=== PATIENT | female | born 1980 | race Caucasian/White ===

== ENCOUNTER 2019-04-12 16:07 | Day surgery (SDC) | payer MEDICAID, SELFPAY ==
[2019-04-12] VITALS (10 sets, daily range): BP systolic 77–99; BP diastolic 44–67; PULSE 69–105; RESP 16–20; TEMP 36.1–36.7; O2SAT 97–100; BMI 23.8
--- NOTE | 2019-04-12 | POC_PTH ---
PATIENT: DARYL VINCENT LOC: [facility] [place] U#:[id number] AGE/SX: 39/F ROOM: RE04/12/[address]: Dr. Jimmy Calloway MD : 1980 BED: DIS: 04/12/2019 SPEC #: [id number] RECD: 04/14/19 12:03 STATUS: LUZMARIA ROBYN #: [id number] BAYLEE: 04/12/19 00:[address]: Jimmy Calloway DEPT: SURGICAL PATHOLOGY RECD BY: Oziel Coleman ENTERED: 04/14/19 12:04 SP TYPE: PROD CONC OTHR DR: Dr. Genet Krishnamurthy MD Tissues: Product of conception, NOS Procedures: Surgery Specimen Level IV HEADER OPERATION: Dilation and curettage, suction PRE-OP DIAGNOSIS: Incomplete TISSUE SUBMITTED: Products of conception MICROSCOPIC DIAGNOSIS Endometrium, curettage: Chorionic villi, decidualized stroma and trophoblastic cells consistent with products of conception. AM:cameron 04/15/19 MICROSCOPIC DESCRIPTION Slides are reviewed. GROSS DESCRIPTION Received in fixative is one container labeled with the patient's name and designated products of conception. The specimen consists of multiple fragments of hemorrhagic soft tissue that in aggregate measure 8 x 8 x 2.5 cm. No tissue is identified. Solar Thermal Technician tissue submitted in two cassettes. / SJ:cameron 04/14/19 TC:5 CPT: 30242
--- NOTE | 2019-04-12 16:28 | US_ITS ---
STUDY: ULTRASOUND OF THE FEMALE PELVIS - COMPLETE REASON FOR EXAM: Female, 39 years old. 2 weeks status post miscarriage. Continued bleeding. LMP: TECHNIQUE: Transvaginal TECHNICAL QUALITY: Adequate. COMPARISON: None. FINDINGS: The uterus is anteverted and is in a midline position. The uterus measures 11.8 x 6.8 x 5.9 cm. Normal uterine cervix. The endometrium is thickened measuring 2 cm. Endometrial echoes are heterogeneous and there is fluid in the endometrial cavity and endocervical canal. Soft tissue densities are seen in the endometrial cavity consistent with retained products of conception. The right ovary is visualized. The right ovary measures 2.8 x 3.5 x 1.3 cm. There is a 1.7 cm right ovarian cyst. There is no visualized right adnexal mass or complex lesion. There is normal arterial and normal venous vascularity. The left ovary is visualized. The left ovary measures 2.7 x 2.8 x 1.5 cm. There is no left ovarian cyst or ovarian mass. There is no visualized left adnexal mass or complex lesion. There is normal arterial and normal venous vascularity. There is no fluid in the cul-de-sac. US/Transvaginal Non- IMPRESSION: Enlarged uterus with thickened and abnormal endometrial echoes. Fluid and soft tissue structures in the endometrial cavity. Findings are consistent with retained products of conception. Electronically Signed: Kenny Perez MD at 18:11 EDT , Service support ,
--- NOTE | 2019-04-12 16:36 | ED.VIS.GEN ---
History of Present Illness Informant: Patient Onset: Yesterday Current Severity: Moderate Maximum Severity: Moderate Prior similar symptoms: No Recent Illness/Hospitalization: No <Mandie Patel - Last Filed: 04/12/19 18:12> <IsrraelManas - Last Filed: 04/12/19 19:22> Chief Complaint: Vag Bleeding Past Medical History Smoking Status: Current every day smoker <Mandie Patel - Last Filed: 04/12/19 18:12> <IsrraelManas - Last Filed: 04/12/19 19:22> - Allergies and Home Meds Allergies/Adverse Reactions: Allergies No Known Allergies Allergy (Verified 08/27/17 14:23) Primary Care Physician: Genet Krishnamurthy MD [Primary Care Provider] - Review of Systems All systems negative except as indicated General: Denies: Chills, Fever Eyes: Denies: Visual changes - left, Blurred vision - left Cardiovascular: Denies: Chest pain, Palpitations Respiratory: Denies: Dyspnea, Cough Gastrointestinal: Reports: Abdominal pain, Nausea. Denies: Vomiting Genitourinary: Reports: - - Heavy vaginal bleeding and menstrual type pelvic cramping. Denies: Dysuria, Hematuria, Frequency Musculoskeletal: Denies: Myalgias, Arthralgias, Back pain Neurological: Denies: Headache, Weakness, Parasthesia <Mandie Patel - Last Filed: 04/12/19 18:12> Physical Exam Vital Signs/Narrative: Vital Signs Temp Pulse Resp BP Pulse Ox 04/12/19 16:07 98.0 F 105 H 20 H 77/44 L 97 Inital Vital Signs reviewed: Yes General: Well nourished, Well developed Head: Normocephalic, Atraumatic Eyes: Perrl, EOMI. Negative for: Pale conjunctiva ENT: Moist mucous membranes, No rhinorrhea Neck: Supple, Nontender Cardiovascular: Regular rate, Regular rhythm, No murmurs Respiratory: No distress, CTA bilaterally, Chest nontender Abdomen: Soft, Nontender : - - Pelvic exam reveals large clots in vaginal vault. She was not hemorrhaging at this time. Minimal tenderness on bimanual exam Back: Nontender, Normal Inspection, CVA tenderness Extremities: Nontender, No edema. Negative for: Tenderness Skin: Normal color, No rash Neurological: Alert, Oriented x3 <Mandie Patel - Last Filed: 04/12/19 18:12> Vital Signs/Narrative: Vital Signs Temp Pulse Resp BP Pulse Ox 04/12/19 16:07 98.0 F 105 H 20 H 77/44 L 97 <IsrraelAmnas - Last Filed: 04/12/19 19:22> Diagnostic/Tx/Re-eval Hemoglobin is 10.4 and serum test was positive. Serum quantitative hCG is 1279. Type and screen was ordered. Pelvic ultrasound official report is pending. Dr Jerrell Calloway AIRLINE OPERATIONS AGENT [facility] was notified. She was hydrated with IV fluids and she did not appear to be in pain. White count is 30,000. In review of old records her white count was 20,000. She tends to run high. Is 6, P3, a 3. Concerned she has retained products of conception. Vital signs are monitored. Hypotensive in triage. BP improved to SBP 92. She remained alert and oriented and nontoxic in appearance. Dr Arcos will resume total care of patient. Currently pending pelvic ultrasound results and will recontact Dr. Calloway for plan. - Medical Decision Making She presented hypotensive with vaginal bleeding. Work-up revealed hemoglobin of 10.4 and a quantitative hCG of 1279. Type and screen is pending and pelvic ultrasound is pending. The concern is that she has retained products of conception. AIRLINE OPERATIONS AGENT was contacted by Dr. Arcos. Dr. Arcos will resume total care of this patient. Impression Acute heavy vaginal bleeding Acute hypotension Status post miscarriage concern for retained products of conception <AmandaMandie - Last Filed: 04/12/19 18:12> - Medical Decision Making Patient being evaluated with our LEAN SIX SIGMA SENIOR SPECIALIST. 39-year-old female G6, P3, AB 3 with those being 2 miscarriages and 1 ectopic. Patient states she had a miscarriage around March 17. [facility]. States she started having a menstrual period the other day and is having much heavier bleeding today. With clots. She does not know her blood type but is never received RhoGam in the past. She denies any pain. Female with low blood pressure of 77/44. Heart rate 105. She does not look septic or toxic. She is not dehydrated. HEENT exam unremarkable. Lungs clear to auscultation. Heart rate of 105 no murmur. Abdomen is soft and nontender. Normal bowel sounds no peritoneal signs. Pelvic exam done by our LEAN SIX SIGMA SENIOR SPECIALIST. Patient was passing blood and clots. No discharge. Nontender. Moving all 4 extremities. No edema. Neurologically awake and alert. Labs to be obtained and ultrasound. If the patient remains hypotensive she may need a D&C. Currently she is being treated with IV fluids. Quant was 1279. Most likely secondary to her recent miscarriage. Her CBC showed a white count of 10.4. Pelvic ultrasound showed a thickened endometrium with what the radiologist thought was retained products of conception. I discussed this with the AIRLINE OPERATIONS AGENT physician change control specialist Dr. Leisa Calloway and she will be and evaluate the patient and most likely take the patient for a D&C. Impression: 1. Acute heavy vaginal bleeding Canary to retained products of conception 2. Acute hypotension 3. Status post recent miscarriage about 4 weeks ago. <Manas Arcos - Last Filed: 04/12/19 19:22> ED Disposition <Mandie Patel - Last Filed: 04/12/19 18:12> <Manas Arcos - Last Filed: 04/12/19 19:22> - Plan for ED Patient: Referrals: Genet Krishnamurthy MD [Primary Care Provider] -
[2019-04-12 16:48] LABS: Internal QC Validated? YES +Cl - CLEAR BKGD
[2019-04-12 16:49] LABS: Absolute Lymphocyte Count 2.32 X10^3/uL (0.83-4.51); Absolute Neutrophil Count 8.6 X10^3/uL (2.0-7.7); Basophil# 0.05 X10^3/uL; Basophil% 0.4 % (0-1); Eosinophil# 0.05 X10^3/uL; Eosinophils% 0.4 % (0-5); Hematocrit 30.1 % (37-47); Hemoglobin 10.4 g/dL (12.0-15.0); Lymphocyte # 2.32 X10^3/ul (4.0); Lymphocyte % 19.9 % (19-41); Mean Corp Hgb Conc 34.6 g/dL (32-36); Mean Corpuscular Hgb 30.7 pg (27.0-32.0); Mean Corpuscular Volume 88.8 fL (81-99); Mean Platelet Vol. 10.2 fl (6.2-12.0); Monocyte# 0.56 X10^3/uL; Monocyte% 4.8 % (0-10); NRBC Flagged by Analyzer 0 % (0-5); Neutrophil # 8.63 X10^3/uL (2.7-7.7); Platelet Count 265 K/mm3 (150-450); RBC Distribution Width CV 13.7 % (11.6-14.6); RBC Distribution Width SD 44.4 fl (35.1-43.9); Red Blood Count 3.39 M/mm3 (4.2-5.4); White Blood Count 11.7 K/mm3 (4.4-11.0)
[2019-04-12 16:58] LABS: Anion Gap 6 (5-15); BUN 16 mg/dL (7-18); BUN/Creat Ratio 17.9 RATIO (10-20); Calcium,Total 8.3 mg/dL (8.5-10.1); Chloride 106 mmol/L (98-107); EST Glomerular Filtration Rate 75 mL/min (>60); Est Glom Filt Rate - Afr Amer 91 mL/min (>60); Estimated Creatinine Clearance 67.03 ml/min; Glucose 180 mg/dL (74-106); Potassium 3.5 mmol/L (3.5-5.1); Sodium Level 138 mmol/L (136-145)
[2019-04-12 17:01] LABS: Pregnancy, Serum, hCG Quali. POSITIVE Negative
--- NOTE | 2019-04-12 17:03 | NURSING ---
LAB CALLED WITH CRITICAL LAB VALUE. DR BOSE NOTIFIED AT THIS TIME.
[2019-04-12] MEDS: 0.9% Normal Saline 1,000 ML 1000 ML IV (17:14)
--- NOTE | 2019-04-12 17:26 | NURSING ---
PAGED DR EL MAHMOOD
[2019-04-12 18:02] LABS: hCG Titer Quant., Serum 1279 mIU/mL (1-3)
--- NOTE | 2019-04-12 20:11 | HP.PCM_ITS ---
History Date of Admission: 04/12/19 History of this : This is a 39 year-old, G [], P [], at weeks gestational age. Medical History: Medical History (Last Updated 04/12/19 @ 20:12 by Jimmy Calloway) ADHD F90.9 Anxiety F41.9 [place] teeth extracted K08.499 1995 Surgical History: Surgical History (Last Updated 04/12/19 @ 20:12 by Jimmy Calloway) History of dilation and curettage Z98.890 Allergies No Known Allergies Allergy (Verified 08/27/17 14:23) Home Medications: Home Medications Dextroamphetamine/Amphetamine [Adderall 10 mg Tablet] 10 mg PO DAILY 04/12/19 Dextroamphetamine/Amphetamine [Adderall Xr 20 mg Capsule] 20 mg PO DAILY 04/12/19 Lorazepam [Ativan] 1 mg PO BID PRN PRN 04/12/19 Smoking Status: Current every day smoker Substance Use Type: Methamphetamine - last use 1 week ago; DENIES all other substance use History Past Pregnancies: Past Pregnancies Delivery Date Name GA/Weeks Outcome Route Weight Infant Gender Labor Length Anesthesia Delivery Location Provider FOB Review of Systems Constitutional: Denies: Chills, Fever, Weight Change Cardiovascular: Denies: Chest Pain, Palpitations Respiratory: Denies: Cough, Shortness of breath at rest, Sputum production Physical Exam Vitals: Vital Signs Temp Pulse Resp BP Pulse Ox 98.0 F 81 18 99/67 99 04/12/19 16:07 04/12/19 19:00 04/12/19 19:00 04/12/19 19:00 04/12/19 19:00 General: Alert, Oriented x3 HEENT: Atraumatic Cardiovascular: Regular rate, Regular Rhythm - per ED exam Lungs: Clear to auscultation, Normal air movement - per ED exam Abdomen: Soft, Non Tender, Non-Distended Extremities:: No edema, No tenderness/swelling Neurological: Cranial nerves II-XII grossly intact CHARGE ACCOUNTS AUDIT CLERK: Normal external genitalia - blood present Assessment/Plan 39yo female with incomplete Reviewed US results showing retained POC's. Discussed R/B/A and will proceed with suction D&C. All questions answered and informed consent signed. Plan for a course of doxycycline as patient with an incomplete AB for greater than 3 weeks.
--- NOTE | 2019-04-12 20:44 | DCINST_ITS ---
Discharge Diet: No Restrictions Discharge Activity: Return to Normal Activity - After 24 hours May resume sexual activity in: 4-6 weeks Weight Bearing Status: Weight bearing as tolerated Call your doctor if you observe: Fever of 101 or Higher, Coldness, Increased Pain, Numbness or Tingling, Change in Color, Inability to urinate, Inability to have a bowel movement, Using more than one pad per hour, Shortness of breath, Dizziness, Fainting spells, Chest pain, Increased palpitations (irregular heartbeat) Allergies/Adverse Reactions: Allergies No Known Allergies Allergy (Verified 08/27/17 14:23) Medications to take at Discharge Dextroamphetamine/Amphetamine [Adderall 10 mg Tablet] 10 mg PO DAILY 04/12/19 Dextroamphetamine/Amphetamine [Adderall Xr 20 mg Capsule] 20 mg PO DAILY 04/12/19 Doxycycline 100 mg PO BID #14 cap 04/12/19 Ibuprofen 600 mg PO Q6H PRN PRN #40 tab 04/12/19 Lorazepam [Ativan] 1 mg PO BID PRN PRN 04/12/19 The following prescriptions were given: Doxycycline 100 mg PO BID #14 cap Prescription Printed Ibuprofen 600 mg PO Q6H PRN PRN #40 tab PRN Reason: abdominal pain Prescription Printed Primary Care Physician: Genet Krishnamurthy MD [Primary Care Provider] - Test Results: Test results from this visit will be discussed in further detail at your follow- up appointment, if applicable.
--- NOTE | 2019-04-12 20:46 | PCM.OPRPT ---
Report of Operation Date of Procedure: 04/12/19 Pre-Operative Diagnosis: Incomplete Post-Operative Diagnosis: Same Surgery/Procedure Performed:: Suction dilation and curettage Description of Surgical Findings:: 10 week size uterus with POC's Type of Anesthesia:: MAC Specimen's removed: POC's Estimated Blood Loss (mL): 100ml Fluids Replaced: 500ml Description of Procedure: Patient taken to OR where MAC anesthesia was placed. Patient was prepped & draped in dorsal lithotomy position. Cervix grasped with a tenaculum. Some POC's as cervical os were grasped with ring forceps. #8 suction curette introduced with return for additional POC's. Gentle sharp curettage with #3 was performed. Suction curettage performed again. Sharp curettage returned and confirmed gritty texture. At end of procedure all instruments removed from vaginal cavity. Patient tolerated procedure well. - Complications None - Admit VTE Documentation VTE Present on Admission: No
[2019-04-12] MEDS: Doxycycline 100 MG CAPSULE 200 MG PO (20:57)
== END 2019-04-12 21:30 | disposition home or self-care (01) ==
LOC: ED 17:23 → SDC 19:57
PROVIDERS: Nurse Practitioner; Emergency Provider Emergency Medicine; Family Provider Family Medicine; PCP Family Medicine; Visit Provider Obstetrics & Gynecology
PROC: (CPT 59812; principal; 2019-04-12 20:00)
DX: O03.4 Incomplete spontaneous abortion without complication (principal); F90.9 Attention-deficit hyperactivity disorder, unspecified type; F41.9 Anxiety disorder, unspecified; F17.200 Nicotine dependence, unspecified, uncomplicated
CPT/HCPCS: 59812; 76830; 80048; 84702; 84703; 85025; 86850; 86900; 88305; 99283; J7030; A4216; J2405

== ENCOUNTER → 2020-06-11 | Outpatient (CLI) | payer MEDICAID, SELFPAY ==
[2019-04-12 19:45] VITALS: BMI 23.8
--- NOTE | 2020-06-11 15:49 | RAD_ITS ---
STUDY: X-RAY - PELVIS AND BILATERAL HIPS REASON FOR EXAM: Female, 40 years old. BILATERAL HIP PAIN xFEW MONTHS, WORSENING LAST TWO WEEKS- BECOMING CONSTANT -- WORSE WHEN RESTING TECHNIQUE: AP view of the pelvis.? 2 views of the right hip, and 2 views of the left hip were obtained. COMPARISON: None. FINDINGS: There is a non-specific bowel gas pattern. Normal visualized soft tissue structures. Normal bilateral iliac wings, sacroiliac joints and visualized sacrum. Normal bilateral superior and inferior pubic rami. Normal pubic symphysis. Normal bilateral ischial tuberosities. Normal visualized right femoral head. Normal right acetabulum. Normal right hip joint. Normal visualized left femoral head. Normal left acetabulum. Normal left hip joint. RAD/Hips B/L min 2 views w/ Pelvis IMPRESSION: Normal x-ray examination of the pelvis and bilateral hips. Electronically Signed: Jun Negro MD (Brooks) at 12:28 EDT , Service support ,
== END | disposition home or self-care (01) ==
LOC: MTRAD 15:46
PROVIDERS: PCP Family Medicine; Referring Provider Family Medicine; Visit Provider Family Medicine
DX: M25.552 Pain in left hip (principal)
CPT/HCPCS: 73521

== ENCOUNTER 2021-06-07 16:00 | Outpatient (RCR) | payer MEDICAID, SELFPAY | END 2021-06-09 23:59 | LOC: DC 16:00 | PROVIDERS: PCP Family Medicine; Visit Provider Advanced Practice Midwife | DX: O24.410 Gestational diabetes mellitus in pregnancy, diet controlled (principal); Z3A.00 Weeks of gestation of pregnancy not specified | CPT/HCPCS: 97802 ==

== ENCOUNTER 2021-06-15 15:42 | Outpatient (RCR) | payer MEDICAID, SELFPAY | END 2021-07-10 23:59 | LOC: DC 15:42 | PROVIDERS: PCP Family Medicine; Visit Provider Advanced Practice Midwife | DX: O24.410 Gestational diabetes mellitus in pregnancy, diet controlled (principal); Z3A.00 Weeks of gestation of pregnancy not specified ==

== ENCOUNTER 2021-08-17 19:55 | Inpatient (IN) | payer MEDICAID, SELFPAY ==
[2021-08-17 20:05] VITALS: BMI 41.7
[2021-08-17 20:07] VITALS: PULSE 99; O2SAT 98
[2021-08-17 20:13] VITALS: BP 120/69; PULSE 96; TEMP 36.7
[2021-08-17] MEDS: Lactated Ringers 1,000 ML 50 ML IV (20:25)
[2021-08-17 20:50] LABS: Basophil# 0.03 X10^3/uL; Basophil% 0.3 % (0-1); Eosinophil# 0.08 X10^3/uL; Eosinophils% 0.7 % (0-5); Hematocrit 34.6 % (37-47); Hemoglobin 11.1 g/dL (12.0-15.0); Lymphocyte % 19.3 % (19-41); Mean Corp Hgb Conc 32.1 g/dL (32-36); Mean Corpuscular Hgb 28.3 pg (27.0-32.0); Mean Corpuscular Volume 88.3 fL (81-99); Mean Platelet Vol. 11.1 fl (6.2-12.0); Monocyte# 0.63 X10^3/uL; Monocyte% 5.8 % (0-10); NRBC Flagged by Analyzer 0 % (0-5); Neutrophil # 7.97 X10^3/uL (2.7-7.7); Neutrophil % 73.2 % (47-70); Platelet Count 257 K/mm3 (150-450); RBC Distribution Width CV 15.9 % (11.6-14.6); RBC Distribution Width SD 51.1 fl (35.1-43.9); Red Blood Count 3.92 M/mm3 (4.2-5.4); White Blood Count 10.9 K/mm3 (4.4-11.0)
[2021-08-17 22:00] LABS: ALB/GLOB Ratio 0.6 RATIO (0.9-2.4); AST(SGOT) 12 U/L (15-37); Alanine Aminotransfer ALT/SGPT 17 U/L (13-56); Albumin, Serum 2.3 g/dL (3.2-5.0); Alkaline Phosphatase 190 U/L (45-117); Anion Gap 8 (5-15); BUN 8 mg/dL (7-18); BUN/Creat Ratio 11.8 RATIO (10-20); Calcium,Total 8.4 mg/dL (8.5-10.1); Chloride 111 mmol/L (98-107); Creatinine, Serum 0.68 mg/dL (0.55-1.02); EST Glomerular Filtration Rate 102 mL/min (>60); Est Glom Filt Rate - Afr Amer 123 mL/min (>60); Estimated Creatinine Clearance 82.99 ml/min; Glucose 95 mg/dL (74-106); Potassium 3.8 mmol/L (3.5-5.1); Protein, Total 6.3 g/dL (6.4-8.2); Sodium Level 142 mmol/L (136-145)
[2021-08-17 22:02] LABS: AST(SGOT) 14 U/L (15-37); Alanine Aminotransfer ALT/SGPT 18 U/L (13-56); Creatinine, Serum 0.66 mg/dL (0.55-1.02); EST Glomerular Filtration Rate 105 mL/min (>60); Est Glom Filt Rate - Afr Amer 127 mL/min (>60); Uric Acid 4.9 mg/dL (2.6-6.0)
[2021-08-17 22:05] LABS: Protein, Urine (Random) 35.6 mg/dL (<11.9); Protein:Creat Ratio 163 mg/g CRE (0-200)
[2021-08-17 22:13] LABS: Amphetamine Urine VISTA NEGATIVE (<1000 ng/mL); Barbiturate Urine VISTA NEGATIVE (< 200 ng/mL); Benzodiazepine Urine VISTA NEGATIVE (< 200 ng/mL); Cocaine Urine VISTA NEGATIVE (< 300 ng/mL); Ecstacy Urine VISTA NEGATIVE (< 500 ng/mL); Methadone Urine VISTA NEGATIVE (< 300 ng/mL); PCP Urine VISTA NEGATIVE (< 25 ng/mL); THC Urine VISTA NEGATIVE (< 50 ng/mL); Vista UDS pH Range 5
[2021-08-17 22:46] LABS: Bedside Glucose 101 mg/dL (70-110)
[2021-08-17 23:00] VITALS: BP 122/58; PULSE 84; PULSE 87; TEMP 36.7; O2SAT 99
[2021-08-17] MEDS: Mag Hydrox/Al Hydrox/Simeth 30 ML UDC PO (23:12)
[2021-08-17 23:15] VITALS: TEMP 36.5
[2021-08-18] VITALS (50 sets, daily range): BP systolic 83–169; BP diastolic 40–129; PULSE 74–107; TEMP 36.1–38.4; O2SAT 86–100
[2021-08-18 04:16] LABS: Bedside Glucose 78 mg/dL (70-110)
[2021-08-18] MEDS: 0.9% Saline Lock 10 ML Syringe IV (07:52)
--- NOTE | 2021-08-18 08:11 | PCM.HP.OB ---
HPI - General General Date of Admission: 08/17/21 HPI Narrative DARYL VINCENT, is a 41 F at 37.5 weeks gestation that was sent over from office for induction of labor due to elevated BP in office. complicated by GDM A1, AMA, Obesity and depression. Maternal Data Information BARBY Calculator Estimated Delivery Date Method Current WG Current Estimate 09/03/21 Manual 37w 5d PFSH PFSH Medical History ADHD Anxiety Depression Gestational diabetes Gestational HTN depression Home Medications aspirin 81 mg PO DAILY 08/17/21 [History Last Taken 08/16/21] blood-glucose meter [Glucometer-M] 08/17/21 [History Last Taken Unknown] prenat vit-iron [id number] [Prena-Cap] 1 cap PO DAILY 08/17/21 [History Last Taken 08/16/21] Allergy/AdvReac Type Severity Reaction Status Date / Time No Known Allergies Allergy Verified 08/17/21 22:37 Surgical History History of dilation and curettage [place] teeth extracted Social History Smoking Status: Current every day smoker History Elective abortions Hx Para 3 Spontaneous abortions Hx # Term Pregnancies Ectopic pregnancies Hx # Pregnancies Multiple births # of living children NST FHR Rate Baby A Baseline: 135 Variability:: Moderate Accelerations:: 15 x 15 Decelerations:: None NST Reactive:: Yes FHR Category:: Category I Uterine Activity:: irritability ROS Eyes Eyes: Denies blurry vision, change in vision or spots in vision ENT HEENT: Denies dizziness or headache(s) Cardiovascular Cardiovascular: Denies abdominal pain, chest pain or dyspnea Respiratory/Chest Respiratory/Chest: Denies cough, dyspnea, shortness of breath at rest or shortness of breath with exertion Gastrointestinal Gastrointestinal: Denies abdominal pain, diarrhea or vomiting Genitourinary Genitourinary: Denies change in urinary stream, difficulty urinating or dysuria Musculoskeletal Musculoskeletal: Reports none Integumentary Integumentary: Denies rash Neurologic Neurologic: Denies dizziness, headache(s), memory loss or weakness Psychiatric Psychiatric: Reports none Vital Signs Vital Signs Vital Signs: 08/17/21 20:07 08/17/21 20:13 08/17/21 23:00 Temperature 98.1 F 98.1 F Temperature Source Temporal Temporal Pulse Rate 99 96 84 Blood Pressure 120/69 122/58 H BP Systolic 120 122 BP Diastolic 69 58 Pulse Ox 98 99 08/17/21 23:15 08/18/21 04:06 08/18/21 07:53 Temperature 97.7 F L 97.8 F Temperature Source Temporal Temporal Pulse Rate 75 84 Blood Pressure 118/61 112/59 L BP Systolic 118 112 BP Diastolic 61 59 Pulse Ox 08/18/21 08:38 08/18/21 08:39 08/18/21 08:55 Temperature 98.2 F Temperature Source Temporal Pulse Rate 83 85 83 Blood Pressure 122/70 H BP Systolic 122 BP Diastolic 70 Pulse Ox 96 97 08/18/21 09:37 08/18/21 10:18 08/18/21 10:19 Temperature 98.0 F Temperature Source Temporal Pulse Rate 80 88 81 Blood Pressure 120/60 121/70 H BP Systolic 120 121 BP Diastolic 60 70 Pulse Ox 97 08/18/21 11:29 08/18/21 12:35 08/18/21 12:36 Temperature 97.6 F L 97.7 F L Temperature Source Temporal Temporal Pulse Rate 76 78 Blood Pressure 102/59 L 115/62 BP Systolic 102 115 BP Diastolic 59 62 Pulse Ox Weight Weight: 224 lb 10.417 oz Body Mass Index (BMI) 41.7 Physical Exam Const alert, oriented x3 and no apparent distress General Appearance: cooperative Orientation / Consciousness: awake Exam Limitations: no limitations HEENT normocephalic Head and Scalp: normal to inspection Eyes General Eye: normal appearance of both eyes Neck full ROM and no lymphadenopathy Lymph Lymphatic: no lymphadenopathy noted Chest inspection of chest normal Resp normal respiratory effort, normal air movement and clear to auscultation bilaterally Effort and Inspection: able to speak in complete sentences and symmetric chest movement Cardio regular rate and regular rhythm GI normal to inspection, nondistended, normoactive bowel sounds Manual OB Exam: presentation cephalic, dilated 4, effaced 60 and station -3 Amniotic Fluid: clear amniotic fluid Back/Spine normal ROM Extremity full ROM and no calf tenderness Skin no rashes or lesions noted General Skin Exam: no breakdown Neuro oriented x3 and CN's II-XII intact bilaterally Psych mental status grossly normal and thought process normal Labs Labs Labs: Blood Type A POSITIVE Antibody Screen NEGATIVE Hct 34.6 % (37-47) L Hgb 11.1 g/dL (12.0-15.0) L Rubella immune HB neg HC neg RPR NR HIV NR GBS neg Assessment & Plan (1) Encounter for induction of labor: (2) Obesity affecting : QUALIFIERS: Trimester: unspecified trimester Qualified Code(s): O99.210 - Obesity complicating , unspecified trimester (3) Depression affecting , antepartum: (4) AMA (advanced maternal age) multigravida 35+: QUALIFIERS: Trimester: unspecified trimester Qualified Code(s): O09.529 - Supervision of elderly multigravida, unspecified trimester (5) 37 weeks gestation of : (6) Gestational diabetes: QUALIFIERS: Gestational diabetes mellitus control: diet-controlled Trimester: unspecified trimester Qualified Code(s): O24.410 - Gestational diabetes mellitus in , diet controlled COMMENT: 2020 (7) Gestational HTN: QUALIFIERS: Trimester: third trimester Qualified Code(s): O13.3 - Gestational [-induced] hypertension without significant proteinuria, third trimester COMMENT: 2020 PLAN: Admitted to labor and delivery Routine labs PIH labs within normal range Willett bulb placement- pitocin IV Diabetes protocol HTN protocol Anticipate Dr. Liriano involved in plan of care and is collaborating physician
--- NOTE | 2021-08-18 08:38 | PCM.PN.OB ---
Subjective Subjective Patient seen at bedside. at 37.5 weeks gestation that was sent over to unit yesterday for induction of labor for increased blood pressure in office, GDM, AMA. IOL postponed last night due to staffing on unit. Patient denies any headache, vision changes, dizziness, SOB or CP. Positive movement. Denies any contractions or loss of fluid. Objective Data Objective Data Vital Signs: Vital Signs Temp Pulse BP Pulse Ox 97.8 F 84 112/59 L 99 08/18/21 04:06 08/18/21 07:53 08/18/21 07:53 08/17/21 23:00 Weight: 224 lb 10.417 oz Body Mass Index (BMI) 41.7 Intake & Output: Intake and Output for Last 24 Hours 08/16/21 08/17/21 08/18/21 23:59 23:59 23:59 Intake Total 66.67 / 66.67 0 / 0 Balance 66.67 / 66.67 0 / 0 Lab / Micro Data Result Diagrams: 08/17/21 20:25 08/17/21 21:25 Labs: Laboratory Results - last 24 hr 08/17/21 20:25: WBC 10.9, RBC 3.92 L, Hgb 11.1 L, Hct 34.6 L, MCV 88.3, MCH 28.3, MCHC 32.1, RDW Std Deviation 51.1 H, RDW Coeff of Bonifacio 15.9 H, Plt Count 257, MPV 11.1, Immature Gran % (Auto) 0.700, Neut % (Auto) 73.2 H, Lymph % (Auto) 19.3, [place] % (Auto) 5.8, Eos % (Auto) 0.7, Baso % (Auto) 0.3, Absolute Neuts (auto) 8.0 H, Absolute Lymphs (auto) 2.10, Nucleated RBC % 0 08/17/21 20:25: Blood Type A POSITIVE, Antibody Screen NEGATIVE 08/17/21 21:25: U Random Total Protein 35.6 H, Urine Creatinine 218.00, Protein/Creatinin Ratio 163 08/17/21 21:25: Creatinine 0.66, Estim Creat Clear Calc 85.50, Est GFR (MDRD) Af Amer 127, Est GFR (MDRD) Non-Af 105, Uric Acid 4.9, AST 14 L, ALT 18 08/17/21 21:25: Sodium 142, Potassium 3.8, Chloride 111 H, Carbon Dioxide 23.0, Anion Gap 8, BUN 8, Creatinine 0.68, Estim Creat Clear Calc 82.99, Est GFR (MDRD) Af Amer 123, Est GFR (MDRD) Non-Af 102, BUN/Creatinine Ratio 11.8, Glucose 95, Calcium 8.4 L, Total Bilirubin 0.20, AST 12 L, ALT 17, Alkaline Phosphatase 190 H, Total Protein 6.3 L, Albumin 2.3 L, Globulin 4.0, Albumin/Globulin Ratio 0.6 L 08/17/21 21:45: Urine Opiates Screen NEGATIVE, Urine Methadone Screen NEGATIVE, Ur Barbiturates Screen NEGATIVE, Ur Phencyclidine Scrn NEGATIVE, Ur Amphetamines Screen NEGATIVE, U Methamphetamin-MDMA NEGATIVE, U Benzodiazepines Scrn NEGATIVE, Urine Cocaine Screen NEGATIVE, U Cannabinoids Screen NEGATIVE, Ur Drug Screen Comment 08/17/21 22:40: POC Glucose 101 08/18/21 04:11: POC Glucose 78 Micro: Microbiology 08/17/21 20:15 Nasal Secretion SARS-CoV-2 Antigen (Rapid) - Final ROS Eyes Eyes: Denies blurry vision, change in vision or spots in vision ENT HEENT: Denies dizziness or headache(s) Cardiovascular Cardiovascular: Denies abdominal pain, chest pain or dyspnea Respiratory/Chest Respiratory/Chest: Denies cough, dyspnea, shortness of breath at rest or shortness of breath with exertion Gastrointestinal Gastrointestinal: Denies abdominal pain, diarrhea or vomiting Genitourinary Genitourinary: Denies change in urinary stream, difficulty urinating or dysuria Musculoskeletal Musculoskeletal: Reports none Integumentary Integumentary: Denies rash Neurologic Neurologic: Denies dizziness, headache(s), memory loss or weakness Psychiatric Psychiatric: Reports none Physical Exam Const alert and no apparent distress General Appearance: cooperative and comfortable Exam Limitations: no limitations HEENT normocephalic Eyes General Eye: normal appearance of both eyes Neck full ROM General: normal visual inspection Chest Chest: symmetrical chest wall rise Resp normal respiratory effort and normal air movement Effort and Inspection: symmetric chest movement Auscultation: clear to auscultation bilaterally Cardio regular rate and regular rhythm GI normal to inspection, nondistended, normoactive bowel sounds Back/Spine normal ROM Extremity full ROM and no calf tenderness General Extremity: normal exam except as noted Skin no rashes or lesions noted Neuro CN's II-XII intact bilaterally Psych mental status grossly normal NST FHR Rate Baby A Baseline: 145 Variability:: Moderate Accelerations:: 15 x 15 Decelerations:: None NST Reactive:: Yes FHR Category:: Category I Uterine Activity:: None Assessment & Plan (1) 37 weeks gestation of : (2) Gestational diabetes: QUALIFIERS: Gestational diabetes mellitus control: diet-controlled Trimester: unspecified trimester Qualified Code(s): O24.410 - Gestational diabetes mellitus in , diet controlled COMMENT: 2020 (3) Gestational HTN: QUALIFIERS: Trimester: third trimester Qualified Code(s): O13.3 - Gestational [-induced] hypertension without significant proteinuria, third trimester COMMENT: 2020 (4) AMA (advanced maternal age) multigravida 35+: QUALIFIERS: Trimester: unspecified trimester Qualified Code(s): O09.529 - Supervision of elderly multigravida, unspecified trimester (5) Depression affecting , antepartum: (6) Obesity affecting : PLAN: CE- /50/-3 Foleybulb placed without difficulty and 30 cc NS placed Start Pitocin at 2mu/min and titrate per policy Diabetes protocol HTN protocol BP and PIH labs within normal ranges (118/61, 122/58) Epidural when indicated Anticipate Dr. Liriano notified and is collaborating physician
[2021-08-18] MEDS: 0.9% Normal Saline Single 100 ML IV.SOLN. INTRA-UTER (08:40)
[2021-08-18] MEDS: Oxytocin 30 units/NS 500 ml 30 UNITS/500 ML IV.SOLN IV (08:41)
[2021-08-18 09:46] LABS: Bedside Glucose 163 mg/dL (70-110)
[2021-08-18 11:45] LABS: Bedside Glucose 75 mg/dL (70-110)
--- NOTE | 2021-08-18 13:07 | PCM.PN.BLA ---
Progress Note Patient seen at bedside. Rates pain 2/10 with contractions. Unsure if wants epidural. Physical Exam Const alert and no apparent distress General Appearance: cooperative and comfortable Exam Limitations: no limitations HEENT normocephalic Eyes General Eye: normal appearance of both eyes Neck full ROM General: normal visual inspection Chest Chest: symmetrical chest wall rise Resp normal respiratory effort and normal air movement Effort and Inspection: symmetric chest movement Auscultation: clear to auscultation bilaterally Cardio regular rate and regular rhythm GI normal to inspection, nondistended, normoactive bowel sounds Back/Spine normal ROM Extremity full ROM and no calf tenderness General Extremity: normal exam except as noted Skin no rashes or lesions noted Neuro CN's II-XII intact bilaterally Psych mental status grossly normal Assessment & Plan Assessment/Plan (1) Gestational HTN: QUALIFIERS: Trimester: third trimester Qualified Code(s): O13.3 - Gestational [-induced] hypertension without significant proteinuria, third trimester (2) Gestational diabetes: QUALIFIERS: Gestational diabetes mellitus control: diet-controlled Trimester: unspecified trimester Qualified Code(s): O24.410 - Gestational diabetes mellitus in , diet controlled (3) 37 weeks gestation of : (4) AMA (advanced maternal age) multigravida 35+: QUALIFIERS: Trimester: unspecified trimester Qualified Code(s): O09.529 - Supervision of elderly multigravida, unspecified trimester (5) Depression affecting , antepartum: (6) Obesity affecting : PLAN: Willett bulb came out Pitocin IV 10 mu/min- continue to titrate CE- 4/60/-3 TAUS confirms cephalic position Cat. 1 tracing Difficult to trace due to maternal size- plan to place internals once ruptured Continue present plan of care Anticipate
--- NOTE | 2021-08-18 15:32 | PCM.PN.BLA ---
Progress Note pt seen at bedside, VE: 3.5/70/-2 AROM performed, large amount of clear fluid. IUPC and IFM placed. Continue pitocin.
[2021-08-18 16:01] LABS: Bedside Glucose 93 mg/dL (70-110)
[2021-08-18] MEDS: Lactated Ringers 500 ML 999 ML IV ×3 (16:45→19:49)
[2021-08-18] MEDS: fentaNYL-bupivacaine (epidural) 100 ML BAG EPIDURAL ×2 (17:31→21:41)
[2021-08-18] MEDS: Lactated Ringers 1,000 ML 200 ML IV (18:18)
[2021-08-18 19:45] LABS: Bedside Glucose 51 mg/dL (70-110)
[2021-08-18 20:36] LABS: Bedside Glucose 55 mg/dL (70-110)
[2021-08-18 20:36] LABS: Bedside Glucose 67 mg/dL (70-110)
[2021-08-18 20:40] LABS: Bedside Glucose 91 mg/dL (70-110)
[2021-08-18] MEDS: Amnioinfusion- 0.9% NS 1,000 ML IV.SOLN. INTRA-UTER (22:38)
[2021-08-18] MEDS: Acetaminophen 500 MG Tablet PO (22:41)
[2021-08-18 22:55] LABS: Bedside Glucose 121 mg/dL (70-110)
--- NOTE | 2021-08-18 23:55 | PCM.PN.BLA ---
Progress Note Patient seen at bedside. Comfortable with epidural. Frequent position changes. Physical Exam Const alert and no apparent distress General Appearance: cooperative and comfortable Exam Limitations: no limitations HEENT normocephalic Eyes General Eye: normal appearance of both eyes Neck full ROM General: normal visual inspection Chest Chest: symmetrical chest wall rise Resp normal respiratory effort and normal air movement Effort and Inspection: symmetric chest movement Auscultation: clear to auscultation bilaterally Cardio regular rate and regular rhythm GI normal to inspection, nondistended, normoactive bowel sounds Back/Spine normal ROM Extremity full ROM and no calf tenderness General Extremity: normal exam except as noted Skin no rashes or lesions noted Neuro CN's II-XII intact bilaterally Psych mental status grossly normal Assessment & Plan Assessment/Plan (1) Encounter for induction of labor: (2) Obesity affecting : QUALIFIERS: Trimester: unspecified trimester Qualified Code(s): O99.210 - Obesity complicating , unspecified trimester (3) Depression affecting , antepartum: (4) AMA (advanced maternal age) multigravida 35+: QUALIFIERS: Trimester: unspecified trimester Qualified Code(s): O09.529 - Supervision of elderly multigravida, unspecified trimester (5) Gestational diabetes: QUALIFIERS: Gestational diabetes mellitus control: diet-controlled Trimester: unspecified trimester Qualified Code(s): O24.410 - Gestational diabetes mellitus in , diet controlled (6) Gestational HTN: QUALIFIERS: Trimester: third trimester Qualified Code(s): O13.3 - Gestational [-induced] hypertension without significant proteinuria, third trimester (7) 37 weeks gestation of : PLAN: CE per nursing /- Pitocin IV at 16 mu/min Cat. 2 tracing with tachycardia and variables- Moderate variability Amnioinfusion running at 50 cc/hr Maternal temperature orally - 101.2 F Tylenol 1000 mg PO now Start Triple I protocol/antibiotics Dr. Liriano updated and involved in plan of care
[2021-08-19] VITALS (110 sets, daily range): BP systolic 89–121; BP diastolic 51–72; PULSE 83–133; RESP 14–20; TEMP 36.1–38.1; O2SAT 83–100
[2021-08-19] LABS: Bedside Glucose 91 mg/dL (70-110)
[2021-08-19] MEDS: Lactated Ringers 1,000 ML 200 ML IV (00:21)
[2021-08-19] MEDS: Lactated Ringers 250 ML 999 ML IV (00:22)
[2021-08-19 01:06] LABS: Bedside Glucose 78 mg/dL (70-110)
[2021-08-19 02:16] LABS: Bedside Glucose 83 mg/dL (70-110)
[2021-08-19] MEDS: fentaNYL-bupivacaine (epidural) 100 ML BAG EPIDURAL (02:51)
[2021-08-19] MEDS: Sodium Citrate/Citric Acid 30 ML UDC PO (03:30)
--- NOTE | 2021-08-19 03:30 | PCM.PN.BLA ---
Progress Note pt evaluated at bedside, VE: /-3. At this time patient was counseled that she has been 5 to 6 cm since approximately 7 PM with no descent in the head. The head feels asynclitic we have tried multiple positions without any success with head descent. At this time tachycardia has persisted now for a few hours with good variability and occasional variable decelerations and early decelerations. Patient was counseled on continuing labor versus primary section. Patient counseled on the risks and benefits of a primary section including but not limited to infection, injury to pelvic structures including bladder bowel vessels. Patient would like to proceed with primary section at this time. Or team was notified. Patient was given gentamicin and ampicillin. will add clindamycin for cs. will continue amp/gent/clinda x 24 hrs post op for suspected triple I.
[2021-08-19 03:31] LABS: Bedside Glucose 83 mg/dL (70-110)
--- NOTE | 2021-08-19 04:35 | OP.PCM_ITS ---
Assessment & Plan (1) Delivery by section: (2) Maternal fever during labor, delivered: (3) tachycardia, delivered: (4) Arrest of dilation, delivered, current hospitalization: Maternal Data Information BARBY Calculator Estimated Delivery Date Method Current WG Current Estimate 09/03/21 Manual 37w 6d Details Operative Information Date of Procedure: 08/19/21 Pre-Operative Diagnosis: suspected Triple I, tachycardia, arrest of dilation, Maternal fever, 37.6 weeks gestation Post-Operative Diagnosis: same, live male infant Indications Narrative: Patient was induction of labor for gestational hypertension, obesity in , AMA, gestational diabetes-noncompliance with monitoring blood sugars-and LGA. Patient underwent labor induction progressed to 6 cm without change in cervical exam. Had tachycardia remote from delivery suspected triple I. Decision for primary section. Classification: ALESSANDRA Procedure Type: low transverse grease and tallow pumper #1: Mira Pardo Type of Anesthesia: Epidural Antibiotic Given: - (ampicillin 2g, gentamycin1.5mg/kg, clindamycin 900mg.) Drain: Willett to straight drain Estimated Blood Loss: 900 Fluids Replaced: 1000 Procedure Start Time: 03:59 Procedure Stop Time: 04:32 Time of Delivery: 04:02 Findings Description of Procedure: After informed consent was obtained the patient was taken the operating room. She was then placed in the supine position. She was prepped and draped in the normal sterile fashion. epidural Anesthesia was found to be adequate. At this time a Pfannenstiel skin incision was made with a knife was carried down to the underlying layer of the fascia. The fascial incision was then extended laterally using curved Oh scissor. Attention was then turned to the superior aspect of the fascial edge was grasped with 2 straight Ally clamps tented up and the rectus muscle dissected off sharply using curved Oh scissor. Attention was then turned to the inferior aspect where again Ally clamps were placed in the rectus muscles were tented up and the fascia was dissected off sharply using the curved Oh scissor. Rectus muscles were then in the midline bluntly and peritoneum was entered bluntly. Gentle opposing traction was placed. At this time the vesicouterine peritoneum was identified. Scalpel was used to make a uterine incision in a low transverse fashion. The uterus was then entered bluntly gentle opposing traction was placed to extend this incision. Infant's head was brought to the uterine inci marco was delivered atraumatically. Nuchal x 1 loose reduced. delayed cord clamping performed. Cord was clamped and cut infant was handed to the waiting nursery team. The Placenta was removed from the uterus. The uterus remained in the abdominal cavity. The uterus was cleared of all clots and debris using a lap. At this time the uterine incision was reapproximated using #1 Vicryl in a running locked fashion. followed by a second imbricating layer with 1-0 vicryl. Hemostasis was appreciated. Gutters were cleared of all clots and debris. Uterine incision was reevaluated and noted to be of excellent hemostasis. Ean placed. At this time the peritoneum was grasped with Kellys reapproximated using #2 Vicryl suture in a running fashion. Ean placed over muscle. Fascia was then reapproximated using #1 PDS in a running fashion. Subcu layer was reapproximated with #2 0 plain gut suture in an interrupted fashion. Subcu layer was closed using 4-0 Monocryl in a subcu fashion. Dry sterile dressing was applied. Instrument lap needle count correct ?2. Anticipated normal postoperative course. Presentation: Positive for Vertex Amniotic Membrane Rupture Type: Artificial Time of Membrane Ruptured: 1514 Amniotic Fluid Description: Clear Placental Delivery Description: Expressed Placenta Disposition: [facility] Cord Vessel Description: 3 Vessels Cord Entanglement: Around neck x 1, loose Nuchal Cord Compression: With compression Cord Gases: ABG and VBG Infant A Gender: Male (1 minute): 8 (5 minute): 9 Delayed Cord Clamping: Yes Complications Risks of Surgery Discussed w/Patient: Bleeding, Anesthesia Risks, Infection and Injury to surrounding structure(s) including bowel and bladder Complications: none
[2021-08-19] MEDS: Ketorolac 30 MG/ML Syringe IV ×4 (05:12→22:55)
[2021-08-19] MEDS: Acetaminophen 500 MG Tablet 1000 MG PO ×4 (05:12→22:55)
[2021-08-19] MEDS: Oxytocin 30 units/NS 500 ml 30 UNITS/500 ML IV.SOLN 167 UNITS IV (05:13)
[2021-08-19 06:30] LABS: Bedside Glucose 139 mg/dL (70-110)
--- NOTE | 2021-08-19 06:58 | NURSING ---
Epidural catheter removed, blue tip intact.
--- NOTE | 2021-08-19 07:06 | NURSING ---
Epidural catheter removed, blue tip intact.
[2021-08-19] MEDS: Lactated Ringers 1,000 ML 100 ML IV (08:53)
[2021-08-19] MEDS: Senna/Docusate Sodium 1 Tablet PO (11:23)
[2021-08-19] MEDS: Enoxaparin 40 MG/0.4 ML Syringe SC (17:12)
[2021-08-20 00:15] VITALS: BP 94/49; PULSE 79; RESP 18; TEMP 36.1
[2021-08-20 03:07] VITALS: BP 105/60; PULSE 83; RESP 18; TEMP 36.4
[2021-08-20 05:37] VITALS: RESP 18
[2021-08-20] MEDS: Ibuprofen 600 MG Tablet PO ×4 (05:39→23:23)
[2021-08-20] MEDS: Acetaminophen 500 MG Tablet 1000 MG PO ×4 (05:39→23:23)
[2021-08-20 05:51] LABS: Bedside Glucose 68 mg/dL (70-110)
[2021-08-20 05:51] LABS: Bedside Glucose 107 mg/dL (70-110)
[2021-08-20 05:51] LABS: Bedside Glucose 69 mg/dL (70-110)
[2021-08-20 05:52] LABS: Hematocrit 24.7 % (37-47); Hemoglobin 8.1 g/dL (12.0-15.0); Mean Corp Hgb Conc 32.8 g/dL (32-36); Mean Corpuscular Hgb 29.2 pg (27.0-32.0); Mean Corpuscular Volume 89.2 fL (81-99); Mean Platelet Vol. 11.1 fl (6.2-12.0); Platelet Count 225 K/mm3 (150-450); RBC Distribution Width SD 51.8 fl (35.1-43.9); Red Blood Count 2.77 M/mm3 (4.2-5.4); White Blood Count 14.8 K/mm3 (4.4-11.0)
[2021-08-20 09:27] VITALS: BP 106/60; PULSE 85; RESP 16; TEMP 36.3; O2SAT 98
--- NOTE | 2021-08-20 09:34 | PCM.PN.OB ---
Subjective Subjective Pain moderately well controlled. Denies fevers or chills. Denies chest pain or shortness of breath. No nausea or vomiting. Tolerating regular diet. Average lochia. Objective Data Objective Data Vital Signs: Vital Signs Temp Pulse Resp BP Pulse Ox 97.4 F L 85 16 106/60 98 08/20/21 09:27 08/20/21 09:27 08/20/21 09:27 08/20/21 09:27 08/20/21 09:27 Oxygen Delivery Method Room Air Weight: 101.9 kg Body Mass Index (BMI) 41.7 Intake & Output: Intake and Output for Last 24 Hours 08/18/21 08/19/21 08/20/21 23:59 23:59 23:59 Intake Total 3848.25 / 3848.25 3379.87 / 3379.87 368 / 368 Output Total 1350 / 1350 850 / 850 1000 / 1000 Balance 2498.25 / 2498.25 2529.87 / 2529.87 -632 / -632 Lab / Micro Data Result Diagrams: 08/20/21 05:35 08/17/21 21:25 Labs: Laboratory Results - last 24 hr 08/20/21 04:35: POC Glucose 69 L 08/20/21 05:00: POC Glucose 68 L 08/20/21 05:32: POC Glucose 107 08/20/21 05:35: WBC 14.8 H, RBC 2.77 L, Hgb 8.1 L, Hct 24.7 L, MCV 89.2, MCH 29.2, MCHC 32.8, RDW Std Deviation 51.8 H, RDW Coeff of Bonifacio 16.0 H, Plt Count 225, MPV 11.1 Micro: Microbiology 08/17/21 20:15 Nasal Secretion SARS-CoV-2 Antigen (Rapid) - Final Physical Exam Const alert General Appearance: cooperative GI GI Narrative: soft, moderate distention, fundus firm, appropriately tender. Abdominal bandage clean dry and intact Assessment & Plan (1) Arrest of dilation, delivered, current hospitalization: (2) Delivery by section: PLAN: Postoperative day #1 status post primary section for arrest of descent and suspected AAA. DC antibiotics. DC IV. Ambulate. Recheck CBC tomorrow. Mild acute blood loss anemia is being tolerated well. is in special care nursery for blood sugar management.
[2021-08-20] MEDS: Enoxaparin 40 MG/0.4 ML Syringe SC ×2 (11:14→22:05)
[2021-08-20] MEDS: Senna/Docusate Sodium 1 Tablet PO (11:16)
[2021-08-20 13:27] VITALS: BP 112/61; PULSE 86; RESP 16; TEMP 36.9; O2SAT 99
[2021-08-20] MEDS: oxyCODONE 5 MG Tablet PO (15:02)
[2021-08-20 22:02] VITALS: BP 115/52; PULSE 82; RESP 18; TEMP 36.9
[2021-08-21] MEDS: oxyCODONE 5 MG Tablet PO (00:45)
[2021-08-21 00:46] VITALS: BP 117/68; PULSE 87; RESP 18; TEMP 37
[2021-08-21] MEDS: Acetaminophen 500 MG Tablet 1000 MG PO ×4 (05:54→23:53)
[2021-08-21] MEDS: Ibuprofen 600 MG Tablet PO ×4 (05:54→23:54)
[2021-08-21 06:19] LABS: Hematocrit 24.2 % (37-47); Hemoglobin 7.9 g/dL (12.0-15.0); Mean Corp Hgb Conc 32.6 g/dL (32-36); Mean Corpuscular Hgb 28.8 pg (27.0-32.0); Mean Corpuscular Volume 88.3 fL (81-99); Mean Platelet Vol. 10.6 fl (6.2-12.0); Platelet Count 260 K/mm3 (150-450); RBC Distribution Width CV 16.2 % (11.6-14.6); RBC Distribution Width SD 52.6 fl (35.1-43.9); Red Blood Count 2.74 M/mm3 (4.2-5.4); White Blood Count 11.3 K/mm3 (4.4-11.0)
[2021-08-21 08:31] VITALS: BP 115/64; PULSE 80; RESP 16; TEMP 36.5; O2SAT 98
[2021-08-21] MEDS: DiphenhydrAMINE 25 MG Capsule PO (10:14)
[2021-08-21] MEDS: 0.9% Saline Lock 10 ML Syringe IV (10:26)
[2021-08-21] MEDS: Enoxaparin 40 MG/0.4 ML Syringe SC ×2 (10:58→21:55)
[2021-08-21] MEDS: Prenatal Vits Tablet 1 TABLET PO (10:58)
[2021-08-21] MEDS: Senna/Docusate Sodium 1 Tablet PO (10:59)
--- NOTE | 2021-08-21 12:24 | PCM.PN.OB ---
Subjective Subjective doing well overall Objective Data Objective Data Vital Signs: Vital Signs Temp Pulse Resp BP Pulse Ox 97.7 F L 80 16 115/64 98 08/21/21 08:31 08/21/21 08:31 08/21/21 08:31 08/21/21 08:31 08/21/21 08:31 Oxygen Delivery Method Room Air Weight: 101.9 kg Body Mass Index (BMI) 41.7 Intake & Output: Intake and Output for Last 24 Hours 08/19/21 08/20/21 08/21/21 23:59 23:59 23:59 Intake Total 3379.87 / 3379.87 368 / 368 110 / 110 Output Total 850 / 850 1000 / 1000 Balance 2529.87 / 2529.87 -632 / -632 110 / 110 Lab / Micro Data Result Diagrams: 08/21/21 06:00 08/17/21 21:25 Labs: Laboratory Results - last 24 hr 08/21/21 06:00: WBC 11.3 H, RBC 2.74 L, Hgb 7.9 L, Hct 24.2 L, MCV 88.3, MCH 28.8, MCHC 32.6, RDW Std Deviation 52.6 H, RDW Coeff of Bonifacio 16.2 H, Plt Count 260, MPV 10.6 Micro: Microbiology 08/17/21 20:15 Nasal Secretion SARS-CoV-2 Antigen (Rapid) - Final Physical Exam Const alert General Appearance: cooperative GI GI Narrative: soft, moderate distention, fundus firm, appropriately tender. Abdominal bandage clean dry and intact Assessment & Plan (1) Delivery by section: (2) Maternal fever during labor, delivered: (3) Acute blood loss anemia: PLAN: Patient is postoperative day #2 status post primary section with suspected AAA. Patient has been afebrile. Fundus is appropriately tender. None signs or symptoms of infection. Antibiotics were discharge continued after 24 hours postop. is in special care nursery and doing well. Patient has acute blood loss anemia from the surgery. We will give IV iron. Routine care. Likely discharge patient to [facility] tomorrow if is not ready for discharge.
[2021-08-21 14:08] VITALS: BP 110/53; PULSE 87; RESP 16; TEMP 37; O2SAT 98
[2021-08-21 21:50] VITALS: BP 108/70; PULSE 82; RESP 16; TEMP 36.6
[2021-08-22 01:06] VITALS: BP 117/72; PULSE 84; RESP 18
[2021-08-22] MEDS: Ibuprofen 600 MG Tablet PO ×2 (05:48→12:47)
[2021-08-22] MEDS: Acetaminophen 500 MG Tablet 1000 MG PO ×2 (05:49→12:48)
[2021-08-22 08:25] VITALS: BP 130/83; PULSE 84; RESP 20; TEMP 36.4
--- NOTE | 2021-08-22 08:38 | PCM.PN.OB ---
Subjective Subjective Doing well per patient and nursing staff. Ambulating and taking PO without difficulty. Voiding and passing flatus. Pain controlled. and pumping, services for assistance, baby in special care. Denies headache, visual changes, chest pain, shortness of breath, leg pain or increased bleeding. Lochia normal. Planning discharge home or to hotel status. Objective Data Objective Data Vital Signs: Vital Signs Temp Pulse Resp BP Pulse Ox 97.6 F L 84 20 H 130/83 H 98 08/22/21 08:25 08/22/21 08:25 08/22/21 08:25 08/22/21 08:25 08/21/21 14:08 Oxygen Delivery Method Room Air Weight: 224 lb 10.417 oz Body Mass Index (BMI) 41.7 Intake & Output: Intake and Output for Last 24 Hours 08/20/21 08/21/21 08/22/21 23:59 23:59 23:59 Intake Total 368 / 368 110 / 110 Output Total 1000 / 1000 Balance -632 / -632 110 / 110 Lab / Micro Data Result Diagrams: 08/21/21 06:00 08/17/21 21:25 Micro: Microbiology 08/17/21 20:15 Nasal Secretion SARS-CoV-2 Antigen (Rapid) - Final ROS Constitutional Constitutional: Reports systems reviewed and no addt'l complaints, except as documented; Denies headache(s) Eyes Eyes: Denies acute decrease in peripheral vision, blurry vision or change in vision ENT HEENT: Reports systems reviewed and no addt'l complaints, except as documented Cardiovascular Cardiovascular: Denies chest pain or dizziness Respiratory/Chest Respiratory/Chest: Denies cough, dyspnea, dyspnea on exertion, shortness of breath at rest or shortness of breath with exertion Gastrointestinal Gastrointestinal: Denies abdominal pain, diarrhea, nausea or vomiting Genitourinary Genitourinary: Denies abdominal discomfort Musculoskeletal Musculoskeletal: Denies limited range of motion Integumentary Integumentary: Reports systems reviewed and no addt'l complaints, except as documented Neurologic Neurologic: Reports systems reviewed and no addt'l complaints, except as documented Psychiatric Psychiatric: Reports systems reviewed and no addt'l complaints, except as documented Endocrine Endocrinology: Reports systems reviewed and no addt'l complaints, except as documented Hematologic/Lymphatic Hematologic/Lymphatic: Reports systems reviewed and no addt'l complaints, except as documented Allergic/Immunologic Allergic/Immunologic: Reports systems reviewed and no addt'l complaints, except as documented Physical Exam Const alert and oriented x3 General Appearance: cooperative Orientation / Consciousness: awake, oriented to person, oriented to place and oriented to time Exam Limitations: no limitations HEENT normocephalic Head and Scalp: normal to inspection, normocephalic and atraumatic Face and Sinus: normal facial exam Eyes General Eye: normal appearance of both eyes Neck full ROM Chest Chest: symmetrical chest wall rise Resp normal respiratory effort and normal air movement Auscultation: clear to auscultation bilaterally Cardio regular rate, regular rhythm, S1 normal heart sound, S2 normal heart sound, no murmurs, no rub, no gallops and no clicks GI normal to inspection, nondistended, normoactive bowel sounds and non-tender GI Narrative: fundus firm 3 below U. Dressing dry and intact. appearance of the vagina normal Bladder / Kidney Exam: no CVA tenderness Back/Spine normal ROM Extremity normal to inspection and full ROM Extremity Narrative: Gwen's negative bilaterally. +1 BLE edema, non pitting Skin no rashes or lesions noted Neuro oriented x3, CN's II-XII intact bilaterally and moves all extremities Sensorium / Orientation: awake, alert and oriented to person Motor Exam: clonus absent Deep Tendon Reflexes: Rt Patellar (L4): 2+ and Lt Patellar (L4): 2+ Assessment & Plan (1) Acute blood loss anemia: (2) Arrest of dilation, delivered, current hospitalization: (3) tachycardia, delivered: (4) Maternal fever during labor, delivered: (5) Delivery by section: (6) Gestational diabetes: QUALIFIERS: Gestational diabetes mellitus control: diet-controlled Trimester: unspecified trimester Qualified Code(s): O24.410 - Gestational diabetes mellitus in , diet controlled COMMENT: 2020 (7) Gestational HTN: QUALIFIERS: Trimester: third trimester Qualified Code(s): O13.3 - Gestational [-induced] hypertension without significant proteinuria, third trimester COMMENT: 2020 (8) Obesity: PLAN: 1) Routine care 2) Vitals stable, BP stable, no meds. 3) Baby in special care nursery, may be discharged today but can stay hotel if baby remains in special care 4) Oxycodone for pain to pharmacy 5) Follow up in one week for pain. Follow up in 6 weeks for PP visit 6) Discharge home
--- NOTE | 2021-08-22 08:45 | PCM.DC.SUM ---
Providers Date of Admission: 08/17/21 Primary Care Physician: Dr. Genet Krishnamurthy MD Reason For Visit: PRIMARY CSECTION Diagnosis Discharge Diagnosis (1) Acute blood loss anemia: Status: Acute Code(s): D62 - Acute posthemorrhagic anemia (2) Arrest of dilation, delivered, current hospitalization: Status: Acute Code(s): O62.1 - Secondary uterine inertia (3) tachycardia, delivered: Status: Acute Code(s): O76 - Abnormality in heart rate and rhythm complicating labor and delivery (4) Maternal fever during labor, delivered: Status: Acute Code(s): O75.2 - Pyrexia during labor, not elsewhere classified (5) Delivery by section: Status: Acute (6) Gestational diabetes: Status: Acute Code(s): O24.419 - Gestational diabetes mellitus in , unspecified control Qualifiers: Gestational diabetes mellitus control: diet-controlled Trimester: unspecified trimester Qualified Code(s): O24.410 - Gestational diabetes mellitus in , diet controlled (7) Gestational HTN: Status: Acute Code(s): O13.9 - Gestational [-induced] hypertension without significant proteinuria, unspecified trimester Qualifiers: Trimester: third trimester Qualified Code(s): O13.3 - Gestational [-induced] hypertension without significant proteinuria, third trimester (8) Obesity: Status: Acute Code(s): E66.9 - Obesity, unspecified Medications at Discharge Home Medications prenat vit-iron [id number] 1 cap PO DAILY 08/17/21 acetaminophen 1,000 mg PO Q6H #0 tab 08/22/21 ibuprofen 600 mg PO Q6H 7 Days #28 tab 08/22/21 oxycodone 5 - 10 mg PO Q6H 7 Days #10 tab 08/22/21 sennosides-docusate sodium [Stool Softener-Stimulant Laxat] 1 - 2 tab PO DAILY 7 Days #30 tab 08/22/21 Hospital Course Summary of Care Provided Hospital Course: 41 year old female presented 08/18/21 for induction of labor due to gestational HTN and GDMA1. Failure to progress, suspected triple, and LTCS completed on 08/19/21. Discharge home on POD #3. Weight / BMI Weight Weight: 224 lb 10.417 oz Body Mass Index (BMI) 41.7 ABG / Lab / Microbiology Data Result Diagrams: 08/21/21 06:00 08/17/21 21:25 Microbiology: Microbiology 08/17/21 20:15 Nasal Secretion SARS-CoV-2 Antigen (Rapid) - Final Meaningful Use Info Meaningful Use Diagnoses (Choose all that apply): None applicable Discharge Plan Admission Admit Date/Time: 08/17/21 19:55 Primary Reason for Your Visit: Induction of Labor, Section Attending Provider: Guerda Hill Primary Care Provider: Genet Krishnamurthy Discharge Orders/Prescriptions Prescriptions: New acetaminophen 500 mg Tablet 1,000 mg PO Q6H Qty: 0 RF: 0 ibuprofen 600 mg Tablet 600 mg PO Q6H 7 Days Qty: 28 RF: 0 oxycodone 5 mg Tablet 5 - 10 mg PO Q6H 7 Days Qty: 10 RF: 0 sennosides-docusate sodium [Stool Softener-Stimulant Laxat] 8.6-50 mg Tablet 1 - 2 tab PO DAILY 7 Days Qty: 30 RF: 0 Continued prenat vit-iron eo-MV-pwfivvik 95-1-50 mg Capsule 1 cap PO DAILY RF: 0 Discontinued aspirin 81 mg tablet,delayed release (DR/EC) 81 mg PO DAILY RF: 0 (DME) blood-glucose meter [Glucometer-M] Kit MISCELLANEOUS RF: 0 Referrals / Follow Up: Genet Krishnamurthy MD [Primary Care Provider] - Disposition Disposition (needs filled in before D/C Order can be placed): Home, Self Care
[2021-08-22] MEDS: Enoxaparin 40 MG/0.4 ML Syringe SC (11:06)
[2021-08-22] MEDS: Senna/Docusate Sodium 1 Tablet PO (11:07)
[2021-08-22 12:52] VITALS: BP 120/79; PULSE 93; RESP 18; TEMP 36.7
== END 2021-08-22 12:59 | disposition home or self-care (01) | DRG 540 ==
PROVIDERS: Obstetrics & Gynecology; Admitting Provider Obstetrics & Gynecology; PCP Family Medicine; Visit Provider Obstetrics & Gynecology
DX: O13.4 Gestational [pregnancy-induced] hypertension without significant proteinuria, complicating childbirth (principal); D62 Acute posthemorrhagic anemia; F17.200 Nicotine dependence, unspecified, uncomplicated; O76 Abnormality in fetal heart rate and rhythm complicating labor and delivery; O24.420 Gestational diabetes mellitus in childbirth, diet controlled; O32.4XX0 Maternal care for high head at term, not applicable or unspecified; O90.81 Anemia of the puerperium; O62.0 Primary inadequate contractions; Z20.822 Contact with and (suspected) exposure to COVID-19; O36.63X0 Maternal care for excessive fetal growth, third trimester, not applicable or unspecified; O69.81X0 Labor and delivery complicated by cord around neck, without compression, not applicable or unspecified; O99.334 Smoking (tobacco) complicating childbirth; Z3A.37 37 weeks gestation of pregnancy; Z37.0 Single live birth
CPT/HCPCS: 59025; 59050; 76815; 80053; 80307; 82565; 82570; 82962; 84156; 84450; 84460; 84550; 85025; 85027; 86850; 86900; 86901; 87426; 99218; J1756; J7030; J7120; A4216; G0378

== ENCOUNTER 2025-04-14 09:21 | Inpatient (IN) | payer MEDICAID, SELFPAY ==
[2025-04-14] VITALS (52 sets, daily range): BP systolic 107–156; BP diastolic 53–90; PULSE 63–90; RESP 14–16; TEMP 36.4–37.7; O2SAT 84–100; BMI 35.9
[2025-04-14] MEDS: Lactated Ringers 1,000 ML 999 ML IV ×2 (10:00→14:40)
[2025-04-14] MEDS: 0.9% Saline Lock 10 ML Syringe IV (10:05)
[2025-04-14 10:10] LABS: Hematocrit 36.2 % (37-47); Hemoglobin 12.0 g/dL (12.0-15.0); Immature Granulocytes Count 0.080 X10^3/uL (0.0-0.0); Mean Corp Hgb Conc 33.1 g/dL (32-36); Mean Corpuscular Volume 91.0 fL (81-99); Mean Platelet Vol. 11.5 fl (6.2-12.0); NRBC Flagged by Analyzer 0 % (0-5); Platelet Count 192 K/mm3 (150-450); RBC Distribution Width CV 15.6 % (11.6-14.6); RBC Distribution Width SD 50.8 fl (35.1-43.9); Red Blood Count 3.98 M/mm3 (4.2-5.4); White Blood Count 9.7 K/mm3 (4.4-11.0)
[2025-04-14 10:59] LABS: Syphilis Antibodies Nonreactive (Nonreactive)
[2025-04-14] MEDS: Oxytocin 15 Units/NS 250ml 15 UNITS/250 ML IV.SOLN 2 UNITS IV (11:35)
[2025-04-14 11:37] LABS: Barbiturate Urine NEGATIVE (< 200 ng/mL); Benzodiazepine Urine NEGATIVE (< 200 ng/mL); PCP Urine NEGATIVE (< 25 ng/mL); THC Urine NEGATIVE (< 50 ng/mL)
[2025-04-14] MEDS: Lactated Ringers 1,000 ML 50 ML IV (14:40)
[2025-04-14] MEDS: fentaNYL-bupivacaine (epidural) 100 ML BAG EPIDURAL (15:35)
--- NOTE | 2025-04-14 17:02 | HP.PCM.OB_ITS ---
HPI - General General Date of Admission: 04/14/25 Date of Service: 04/14/25 Chief Complaint: induction of labor HPI Narrative DARYL VINCENT, is a 45 F who [id number] who presents at 39 weeks gestation with EDC of 04/21/2025 for induction of labor due to advanced maternal age. She denies any vaginal bleeding or leaking of fluid. She has had good movement. She has had 1 previous section and the remainder of been vaginal deliveries and she desires a trial of labor after today. Past medical history significant for history of gestational diabetes, advanced maternal age, tobacco use during , history of drug use, obesity in with BMI of 36. Maternal Data Information Final BARBY: 04/21/25 Gestational age: 39 0/7 PFSH PFS Medical History (Updated 04/14/25 @ 17:[address] Taylor Carcamo MD) (infant) Wears glasses Wears contact lenses Injury of back Smoker depression Depression Gestational HTN Gestational diabetes ADHD Anxiety Home Medications ?Medication ?Instructions ?Recorded ?Last Taken ?Type vitamn-iron carb-folic 1 cap PO DAILY pregnan cy 08/17/21 04/14/25 History acid-docusate 95 mg-1 mg-50 mg capsule dextroamphetamine-amphetamine ER 20 mg PO DAILY pregna corie 10/11/21 Unknown History 20 mg 24hr capsule,extend release (Adderall XR) aspirin 81 mg tablet,delayed 81 mg PO DAILY 04/14/25 04/14/25 History release Allergy/AdvReac Type Severity Reaction Status Date / Time No Known Allergies Allergy Verified 04/14/25 09:38 Surgical History (Updated 04/14/25 @ 17:[address] Taylor Carcamo MD) History of dilation and curettage [place] teeth extracted Social History Smoking Status: Heavy Smoker (>10/day) History Elective abortions Hx Para 4 Spontaneous abortions Hx # Term Pregnancies Ectopic pregnancies Hx # Pregnancies Multiple births # of living children ROS Constitutional Constitutional: Denies fatigue, fever(s) or malaise Eyes Eyes: Denies change in vision ENT HEENT: Denies dizziness or headache(s) Cardiovascular Cardiovascular: Denies chest pain, dyspnea or lightheadedness Respiratory/Chest Respiratory/Chest: Denies cough or dyspnea Gastrointestinal Gastrointestinal: Denies change in bowel habits Genitourinary Genitourinary: Denies burning urination or genital lesions Integumentary Integumentary: Denies rash Neurologic Neurologic: Denies confusion, dizziness, headache(s), numbness or weakness Vital Signs Vital Signs Vital Signs: 04/14/25 09:29 04/14/25 09:29 04/14/25 09:29 Temperature 97.6 F L Temperature Source Temporal Pulse Rate Respiratory Rate 16 Blood Pressure BP Systolic BP Diastolic Pulse Ox 04/14/25 09:30 04/14/25 09:31 04/14/25 09:31 Temperature 97.5 F L Temperature Source Pulse Rate 76 Respiratory Rate Blood Pressure 127/76 H BP Systolic 127 BP Diastolic 76 Pulse Ox 04/14/25 10:06 04/14/25 10:06 04/14/25 11:37 Temperature Temperature Source Pulse Rate 76 Respiratory Rate Blood Pressure 123/56 H BP Systolic 123 BP Diastolic 56 Pulse Ox 97 04/14/25 11:37 04/14/25 11:41 04/14/25 11:41 Temperature Temperature Source Pulse Rate 64 73 Respiratory Rate Blood Pressure BP Systolic BP Diastolic Pulse Ox 99 04/14/25 11:42 04/14/25 12:52 04/14/25 12:52 Temperature 98.1 F Temperature Source Temporal Pulse Rate 64 Respiratory Rate Blood Pressure BP Systolic BP Diastolic Pulse Ox 04/14/25 12:52 04/14/25 12:52 04/14/25 12:52 Temperature 97.9 F Temperature Source Pulse Rate Respiratory Rate 16 Blood Pressure BP Systolic BP Diastolic Pulse Ox 99 04/14/25 12:53 04/14/25 12:53 04/14/25 14:24 Temperature Temperature Source Pulse Rate 64 65 Respiratory Rate Blood Pressure 141/74 H BP Systolic 141 BP Diastolic 74 Pulse Ox 04/14/25 14:24 04/14/25 14:25 04/14/25 14:25 Temperature Temperature Source Pulse Rate 64 Respiratory Rate Blood Pressure 121/63 H BP Systolic 121 BP Diastolic 63 Pulse Ox 99 04/14/25 14:25 04/14/25 15:21 04/14/25 15:21 Temperature 98.2 F Temperature Source Pulse Rate 71 Respiratory Rate Blood Pressure BP Systolic BP Diastolic Pulse Ox 100 04/14/25 15:22 04/14/25 15:22 04/14/25 15:26 Temperature Temperature Source Pulse Rate 72 72 Respiratory Rate Blood Pressure 144/87 H BP Systolic 144 BP Diastolic 87 Pulse Ox 04/14/25 15:26 04/14/25 15:28 04/14/25 15:28 Temperature Temperature Source Pulse Rate 73 Respiratory Rate Blood Pressure 135/83 H BP Systolic 135 BP Diastolic 83 Pulse Ox 100 04/14/25 15:31 04/14/25 15:31 04/14/25 15:32 Temperature Temperature Source Pulse Rate 70 Respiratory Rate Blood Pressure 133/73 H BP Systolic 133 BP Diastolic 73 Pulse Ox 100 04/14/25 15:32 04/14/25 15:34 04/14/25 15:34 Temperature Temperature Source Pulse Rate 75 72 Respiratory Rate Blood Pressure BP Systolic BP Diastolic Pulse Ox 84 04/14/25 15:36 04/14/25 15:36 04/14/25 15:38 Temperature Temperature Source Pulse Rate 74 Respiratory Rate Blood Pressure 156/90 H BP Systolic 156 BP Diastolic 90 Pulse Ox 100 04/14/25 15:38 04/14/25 15:38 04/14/25 15:41 Temperature Temperature Source Pulse Rate 77 81 Respiratory Rate 16 Blood Pressure BP Systolic BP Diastolic Pulse Ox 04/14/25 15:41 04/14/25 15:43 04/14/25 15:43 Temperature Temperature Source Pulse Rate 88 Respiratory Rate Blood Pressure 133/67 H BP Systolic 133 BP Diastolic 67 Pulse Ox 100 04/14/25 15:43 04/14/25 15:46 04/14/25 15:46 Temperature Temperature Source Pulse Rate 79 Respiratory Rate 14 Blood Pressure BP Systolic BP Diastolic Pulse Ox 100 04/14/25 15:47 04/14/25 15:47 04/14/25 15:47 Temperature Temperature Source Pulse Rate 74 Respiratory Rate 16 Blood Pressure 129/74 H BP Systolic 129 BP Diastolic 74 Pulse Ox 04/14/25 15:49 04/14/25 15:49 04/14/25 15:49 Temperature Temperature Source Pulse Rate 84 Respiratory Rate Blood Pressure 129/71 H BP Systolic 129 BP Diastolic 71 Pulse Ox 93 04/14/25 15:49 04/14/25 15:51 04/14/25 15:51 Temperature Temperature Source Pulse Rate 88 74 Respiratory Rate Blood Pressure BP Systolic BP Diastolic Pulse Ox 84 04/14/25 15:52 04/14/25 15:52 04/14/25 15:52 Temperature Temperature Source Pulse Rate 74 Respiratory Rate 14 Blood Pressure 129/73 H BP Systolic 129 BP Diastolic 73 Pulse Ox 04/14/25 15:59 04/14/25 15:59 04/14/25 16:04 Temperature Temperature Source Pulse Rate 73 Respiratory Rate Blood Pressure 110/55 L BP Systolic 110 BP Diastolic 55 Pulse Ox 98 04/14/25 16:04 04/14/25 16:04 04/14/25 16:04 Temperature Temperature Source Pulse Rate 71 73 Respiratory Rate 16 Blood Pressure BP Systolic BP Diastolic Pulse Ox 04/14/25 16:04 04/14/25 16:07 04/14/25 16:07 Temperature Temperature Source Pulse Rate 63 Respiratory Rate Blood Pressure 109/56 L BP Systolic 109 BP Diastolic 56 Pulse Ox 98 04/14/25 16:09 04/14/25 16:09 04/14/25 16:13 Temperature Temperature Source Pulse Rate 70 Respiratory Rate Blood Pressure 116/56 L BP Systolic 116 BP Diastolic 56 Pulse Ox 99 04/14/25 16:13 04/14/25 16:13 04/14/25 16:14 Temperature Temperature Source Pulse Rate 67 69 Respiratory Rate 16 Blood Pressure BP Systolic BP Diastolic Pulse Ox 04/14/25 16:14 04/14/25 16:19 04/14/25 16:19 Temperature Temperature Source Pulse Rate 65 Respiratory Rate Blood Pressure BP Systolic BP Diastolic Pulse Ox 98 97 04/14/25 16:23 04/14/25 16:56 04/14/25 16:56 Temperature 97.9 F Temperature Source Pulse Rate 72 Respiratory Rate Blood Pressure 110/59 L BP Systolic 110 BP Diastolic 59 Pulse Ox Weight Weight: 86.4 kg Body Mass Index (BMI) 35.9 Physical Exam Const alert and no apparent distress General Appearance: cooperative HEENT normocephalic Resp normal respiratory effort Cardio regular rate GI soft to palpation GI Narrative: gravid, nontender, appropriate for gestational age Extremity no calf tenderness General Extremity: edema Skin no wounds Rashes: No rashes noted Psych activity/motor behavior normal Labs Labs Labs: Blood Type A POSITIVE Antibody Screen NEGATIVE Hct 36.2 % (37-47) L Hgb 12.0 g/dL (12.0-15.0) Syphilis Total Ab Nonreactive (Nonreactive) Rhogam given: No Assessment & Plan (1) 39 weeks gestation of : (2) Advanced maternal age (AMA) in : (3) Previous delivery, antepartum: PLAN: Risk-benefit and alternatives to induction of labor have been discussed with the patient her questions were answered to her satisfaction she desires to proceed. Also reviewed risk benefits and alternatives to trial of labor after and she desires to proceed. Estimated weight is less than 4500 g and pelvis clinically adequate to expect vaginal delivery. May use routine pain control measures as needed and as indicated in labor. Patient with nicotine dependence disorder, request nicotine patch. This was ordered. If needs emergent section does desire tubal sterilization. (4) Tobacco use disorder:
--- NOTE | 2025-04-14 17:13 | EX.PCM.OBVAG ---
Maternal Data Information Final BARBY: 04/21/25 Gestational age: 39 0/7 Vaginal Delivery Maternal Presentation Maternal Presentation: Medically Indicated Induction Type of Induction: Pitocin and Amniotomy Vaginal Delivery Information Procedure Performed: Surgeon/Practitioner: Taylor Carcamo Date of Procedure: 04/14/25 Pre-Procedure Diagnosis: labor Post-Procedure Diagnosis: same Type of anesthesia: Epidural Estimated Blood Loss: 300 Time of Delivery: 16:45 Findings Description of procedure: A vigorous male was delivered PB over an intact perineum. The remainder the infant was delivered with maternal pushing and gentle traction only in less than 15 seconds. The Pitocin infusion was initiated for active management of the third stage. The cord was clamped and cut after cord pulsations ceased. The infant was attended to by the waiting nursing staff. The placenta was delivered spontaneously and intact. The cervix and vagina were intact. Sponge and needle counts were correct. A vaginal sweep was completed by me. 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
[2025-04-14] MEDS: Oxytocin 15 Units/NS 250ml 15 UNITS/250 ML IV.SOLN 83 UNITS IV (17:20)
[2025-04-15] VITALS (11 sets, daily range): BP systolic 104–139; BP diastolic 55–88; PULSE 63–82; RESP 14–16; TEMP 36.5–36.7; O2SAT 96–99
--- NOTE | 2025-04-15 08:36 | PCM.DC.SUM ---
Providers Date of Admission: 04/14/25 Primary Care Physician: Dr. Gente Krishnamurthy MD Reason For Visit: VAGINAL Diagnosis Discharge Diagnosis (1) Advanced maternal age (AMA) in : Status: Acute (2) Previous delivery, antepartum: Status: Acute Code(s): O34.219 - Maternal care for unspecified type scar from previous delivery (3) Tobacco use disorder: Status: Acute Code(s): F17.200 - Nicotine dependence, unspecified, uncomplicated (4) (vaginal after ): Status: Acute Code(s): O34.219 - Maternal care for unspecified type scar from previous delivery Plan PPD 1 Pain controlled Ambulating and voiding without difficulty D/C home with follow up in office- desires PPTL Medications at Discharge Home Medications vitamn-iron carb-folic acid-docusate 95 mg-1 mg-50 mg capsule 1 cap PO DAILY 08/17/21 dextroamphetamine-amphetamine ER 20 mg 24hr capsule,extend release (Adderall XR) 20 mg PO DAILY pregnaancy 10/11/21 ibuprofen 600 mg tablet 600 mg PO Q6H PRN PRN Pain Score 1-10 #0 tabs 04/15/25 Hospital Course Operations None Procedures None Summary of Care Provided Minutes Spent on Discharge: 15 Hospital Course: Patient had vaginal delivery. Hospital course was uneventful. Physical Exam Narrative Patient seen at bedside. Denies pain. Ambulating and voiding without difficulty. Lochia decreased. Breast and formula feeding. Desires discharge home today. Const alert and oriented x3 General Appearance: Negative for in distress HEENT normocephalic Eyes General Eye: normal appearance of both eyes Neck General: normal visual inspection Chest Chest: symmetrical chest wall rise Resp normal respiratory effort and normal air movement Effort and Inspection: symmetric chest movement; Negative for tachypneic Auscultation: clear to auscultation bilaterally Cardio regular rate and regular rhythm Peripheral Pulses: pulses 2+ throughout GI normal to inspection, nondistended, normoactive bowel sounds Narrative: Ice to perineum OB / External & Speculum: vaginal bleeding and other Lochia decreasing Uterus Palpation: uterus fundus firm (Below U) Extremity normal to inspection, full ROM and normal capillary refill Skin no rashes or lesions noted Neuro oriented x3, CN's II-XII intact bilaterally and gait normal Psych mental status grossly normal, thought process normal and activity/motor behavior normal Weight / BMI Weight Weight: 190 lb 7.67 oz Body Mass Index (BMI) 35.9 ABG / Lab / Microbiology Data 04/14/25 10:00 Laboratory: Laboratory Results - last 24 hr 04/14/25 10:00: WBC 9.7, RBC 3.98 L, Hgb 12.0, Hct 36.2 L, MCV 91.0, MCH 30.2, MCHC 33.1, RDW Std Deviation 50.8 H, RDW Coeff of [place] 15.6 H, Plt Count 192, MPV 11.5, Immature Gran % (Auto) 0.800, Neut % (Auto) 70.4 H, Lymph % (Auto) 20.7, [place] % (Auto) 7.2, Eos % (Auto) 0.4, Baso % (Auto) 0.5, Absolute Neuts (auto) 6.8, Absolute Lymphs (auto) 2.01, Nucleated RBC % 0, Syphilis Total Ab Nonreactive, Blood Type A POSITIVE, Antibody Screen NEGATIVE 04/14/25 10:26: POC Glucose 68 L 04/14/25 10:45: Urine Opiates Screen NEGATIVE, U Buprenorphine Qual NEGATIVE, Ur Oxycodone Screen NEGATIVE, Urine Methadone Screen NEGATIVE, Urine Fentanyl Screen NEGATIVE, Ur Barbiturates Screen NEGATIVE, Ur Phencyclidine Scrn NEGATIVE, Ur Amphetamines Screen NEGATIVE, U Benzodiazepines Scrn NEGATIVE, Urine Cocaine Screen NEGATIVE, U Cannabinoids Screen NEGATIVE, POC Glucose 108 H 04/14/25 11:42: POC Glucose 75 04/14/25 14:47: POC Glucose 71 L 04/14/25 15:54: POC Glucose 65 L 04/14/25 16:19: POC Glucose 63 L 04/14/25 16:37: POC Glucose 96 04/14/25 18:39: POC Glucose 125 H 04/15/25 05:21: POC Glucose 119 H D/C Instructions Discharge Activity: Return to Normal Activity, No Restrictions, May Drive, May Shower and May Take a Tub Bath (Warm water only. No bath salts, soaps, bubbles) May resume sexual activity in: 6-8 weeks Weight Bearing Status: Weight bearing as tolerated Call your doctor if you observe: Fever of 101 or Higher, Inability to urinate, Using more than 1 pad per hour, Shortness of breath, Dizziness, Chest pain, Calf discomfort and Uncontrolled pain DC O2, CPAP, BIPAP Needs Home O2 Discharge instructions: No Please Follow Up With: [facility] Amina DANIEL When: 2 weeks in office or virtual Meaningful Use Info Meaningful Use Meaningful Use Diagnoses (Choose all that apply): None applicable Discharge Plan Admission Admit Date/Time: 04/14/25 09:21 Primary Reason for Your Visit: Labor and Delivery Attending Provider: Taylor Carcamo Primary Care Provider: Genet Krishnamurthy Discharge Orders/Prescriptions Prescriptions: New ibuprofen 600 mg Tablet 600 mg PO Q6H PRN PRN (Reason: Pain Score 1-10) Qty: 0 0RF Continued prenat vit-iron [id number]-ryfjcjla 95-1-50 mg Capsule 1 cap PO DAILY Discontinued aspirin 81 mg tablet,delayed release (DR/EC) 81 mg PO DAILY No Action dextroamphetamine-amphetamine [Adderall XR] 20 mg Capsule,Extended Release 24hr 20 mg PO DAILY Referrals / Follow Up: Genet Krishnamurthy MD [Primary Care Provider] - Disposition Disposition (needs filled in before D/C Order can be placed): Home, Self Care
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
--- NOTE | 2025-04-16 11:31 | CASEMGMT ---
Brief Social Work Note Date: 04/16/25 Time: 1130 Sw called [facility] and spoke to hotline screener, Vivienne Ordoñez. Vivienne stated she would write up referral and provide to her supervisor dehydrogenation. Sw will receive mandated cryogenic transport driver letter in the mail indicating whether referral was screened in or out. Humera Jeffers, SCAFFOLDER, GRAIN MIXER
--- NOTE | 2025-04-17 09:07 | CASEMGMT ---
Brief Social Work Note Date: 04/17/25 Time: 0900 Sw received phone call from [facility] intake screener, Rc. Rc states that [facility] transferred the referral that this psychosocial rehabilitation counselor made on 04/16/25 to [facility] due to them already having an open ongoing case with them. Sw expressed understanding, and answered questions that Rc had regarding mother of baby (MOB- Shameka) and her interactions with . Rc stated that the agency remains involved with MOB. No new needs or concerns at this time. [facility] has an open case with MOB and her children. Humera Jeffers, MECHANICAL DRAFTER, MALL MANAGER
--- NOTE | 2025-04-20 14:29 | NURSING ---
Follow up phone call made, no answer, left voicemail
== END 2025-04-15 20:10 | disposition home or self-care (01) | DRG 560 ==
PROVIDERS: Admitting Provider Obstetrics & Gynecology; PCP Family Medicine; Referring Provider Obstetrics & Gynecology; Visit Provider Obstetrics & Gynecology
DX: O99.344 Other mental disorders complicating childbirth (principal); Z37.0 Single live birth; O24.420 Gestational diabetes mellitus in childbirth, diet controlled; F17.200 Nicotine dependence, unspecified, uncomplicated; O99.214 Obesity complicating childbirth; F90.9 Attention-deficit hyperactivity disorder, unspecified type; O99.334 Smoking (tobacco) complicating childbirth; O34.219 Maternal care for unspecified type scar from previous cesarean delivery; Z86.59 Personal history of other mental and behavioral disorders; Z79.899 Other long term (current) drug therapy; Z79.82 Long term (current) use of aspirin; Z3A.39 39 weeks gestation of pregnancy
CPT/HCPCS: 59025; 59050; 80307; 82962; 85025; 86780; 86850; 86900; 86901; 99221; A4216; G0378